=== PATIENT | female | born 1950 | race Caucasian/White ===

== ENCOUNTER 2020-03-18 20:19 | Emergency (ER) | payer MEDICARE, SELFPAY ==
--- NOTE | ~2020-03-18 | XR_ITS ---
EXAMINATION: XR knee LT 3V DATE: 03/18/2020 21:29 INDICATION: Left knee pain TECHNIQUE: Three views of the left knee were obtained. COMPARISON: 03/10/2019 FINDINGS: There is advanced osteoarthritis of the knee with interval worsening since the comparison e xamination. No definite fracture is identified. There is a large knee joint effusion. IMPRESSION: 1. Advanced osteoarthritis with interval worsening but no definite acute osseous abnormality identifi ed. 2. Large knee joint effusion. Reviewed, dictated and finalized at location A. IMPRESSION: 1. Advanced osteoarthritis with interval worsening but no definite acute osseou s abnormality identified. 2. Large knee joint effusion.
[2020-03-18 20:35] VITALS: BP 125/76; PULSE 103; RESP 18; TEMP 36.7; O2SAT 99
[2020-03-18] MEDS: HYDROcodone/acetaminophen (*CRX) 5-325 MG TABLET 1 TAB PO (21:26)
[2020-03-18] MEDS: fentaNYL CITRATE INJ (*CRX) 100 MCG/2 ML VIAL 50 MCG IV PUSH (21:27)
[2020-03-18] MEDS: MORPHINE SULFATE (*CRX) 4 MG/ML INJ IV PUSH (22:59)
[2020-03-18 23:00] VITALS: BP 139/68; PULSE 91; RESP 18; O2SAT 97
--- NOTE | 2020-03-18 23:09 | ED.GENADULT ---
HPI - General Adult General Chief complaint: Unspecified Stated complaint: generalized pain Time Seen by Provider: 03/18/20 20:53 History of Present Illness HPI narrative: Patient is a 69-year-old female who presents ER with left knee pain. Reports she took a nap in the position when she woke up she had increased pain over the medial aspect. Has difficulty extending it out. No numbness or tingling. No known trauma. She has known degenerative changes to her knee and she is scheduled to see an orthopedic surgeon at [facility] in 1 week. She has been taking diclofenac at home. Related Data Home Medications Medication Instructions Recorded Confirmed aspirin 325 mg tablet 325 mg PO DAILY 12/28/19 02/28/20 chlorthalidone 50 mg tablet 50 mg PO DAILY 12/28/19 02/28/20 fenofibrate micronized 134 mg 134 mg PO DAILY 12/28/19 02/28/20 capsule lisinopril 40 mg tablet 40 mg PO DAILY 12/28/19 02/28/20 metformin 500 mg tablet,extended 500 mg PO DAILY 12/28/19 02/28/20 release 24 hr Allergies Allergy/AdvReac Type Severity Reaction Status Date / Time amlodipine Allergy Unknown fatigue, Verified 03/18/20 21:26 hair loss, weight gain ( edema) atorvastatin Allergy Unknown aches Verified 03/18/20 21:26 lovastatin Allergy Unknown myalgias Verified 03/18/20 21:26 telmisartan Allergy Unknown Skin Verified 03/18/20 21:26 Reaction No Known Allergies Allergy Verified 03/18/20 21:26 Review of Systems Constitutional: Constitutional: Denies chills, Denies fever(s) and Denies weakness Musculoskeletal: Musculoskeletal: Reports arthralgias, Reports joint swelling and Denies muscle cramps Integumentary/Breasts: Skin/Breast: Denies erythema and Denies rash Neurologic: Denies numbness and Denies weakness [facility] Past Medical History Medical History (Updated 03/18/20 @ 23:26 by Chano Michaels MD) Essential (primary) hypertension Left medial knee pain Mixed hyperlipidemia Other specified hypothyroidism Pure hypercholesterolemia, unspecified Type 2 diabetes mellitus without complications Surgical History Surgical History (Updated 02/28/20 @ 09:50 by Lin Jorge [facility]) History of hip surgery (~2018) Family History Family History (Updated 09/14/17 @ 09:22 by DOCTOR UNKNOWN) Father Diabetes mellitus Other Family history of mental disorder Social History Social History Smoking status: Never smoker Alcohol intake: never Exam Narrative: Exam Narrative: GENERAL: Chronically ill-appearing, obese, and in no acute distress. HEAD: Normocephalic, atraumatic. CHEST: Clear to auscultation. No respiratory distress. HEART: Regular rate and rhythm. Normal peripheral pulses. EXTREMITIES: Focused exam left knee reveals medial joint line tenderness. Effusion noted. Has difficulty extending knee due to pain. SKIN: Warm, dry, no rash. NEURO: No focal deficits. Alert and oriented x3. PSYCH: Normal mood and affect. Course Course Emergency Course: Pain improving. Informed of results. Recommend follow-up with her orthopedic surgeon. Vital Signs Vital signs: Vital Signs Temperature 98.1 F 03/18/20 20:35 Pulse Rate 103 H 03/18/20 20:35 Respiratory Rate 18 03/18/20 20:35 Blood Pressure 125/76 03/18/20 20:35 Pulse Oximetry 99 03/18/20 20:35 Temperature 98.1 F 03/18/20 20:35 Pulse Rate 91 03/18/20 23:00 Respiratory Rate 18 03/18/20 23:00 Blood Pressure 139/68 03/18/20 23:00 Pulse Oximetry 97 03/18/20 23:00 Medical Decision Making Vital Signs Vital Signs: Vital Signs Temperature 98.1 F 03/18/20 20:35 Pulse Rate 103 H 03/18/20 20:35 Respiratory Rate 18 03/18/20 20:35 Blood Pressure 125/76 03/18/20 20:35 Pulse Oximetry 99 03/18/20 20:35 Temperature 98.1 F 03/18/20 20:35 Pulse Rate 91 03/18/20 23:00 Respiratory Rate 18 03/18/20 23:00 Blood Pressure 139/68 03/18/20 23:00 Pulse Oximetry 97 03/18/20
[2020-03-18 23:42] VITALS: BP 142/70; PULSE 90; RESP 16; O2SAT 97
== END 2020-03-18 23:43 | disposition home or self-care (01) ==
PROVIDERS: Emergency Provider Emergency Medicine; PCP Family Medicine
DX: M25.562 Pain in left knee (principal); G89.29 Other chronic pain; I10 Essential (primary) hypertension; E78.2 Mixed hyperlipidemia; E78.00 Pure hypercholesterolemia, unspecified; E11.9 Type 2 diabetes mellitus without complications; Z79.82 Long term (current) use of aspirin; Z79.84 Long term (current) use of oral hypoglycemic drugs
CPT/HCPCS: 73562; 96374; 96375; 99284; A4565; A9270; J2270; J3010